=== PATIENT | female | born 1950 | race Caucasian/White ===

== ENCOUNTER 2017-10-20 12:56 | Emergency (ER) | payer OTHER ==
[~2017-10-20] VITALS: Ht 160 cm; Wt 94.8 kg
--- NOTE | 2017-10-20 13:17 | NUR ---
PT IS IN ROOM #2A. DR KEENAN EVALUATED THE PT.
[2017-10-20] MEDS ORDERED: HYDROCODONE/APAP 10-325 MG TABLET PO ONE (15:30)
[2017-10-20] MEDS ORDERED: HYDROCODONE/APAP 10-325 MG TABLET ONE (15:31)
[2017-10-20 15:39] VITALS: BP 131/82
--- NOTE | 2017-10-20 15:39 | NUR ---
PT WAS D/C TO HOME. D/C INSTRUCTIONS GIVEN TO THE PT.
== END 2017-10-20 15:41 | disposition home or self-care (01) ==
LOC: ER 12:56
DX: S30.0XXA Contusion of lower back and pelvis, initial encounter (principal); S60.212A Contusion of left wrist, initial encounter; S90.02XA Contusion of left ankle, initial encounter; I10 Essential (primary) hypertension; W19.XXXA Unspecified fall, initial encounter; Y93.89 Activity, other specified; Y92.89 Other specified places as the place of occurrence of the external cause; Y99.8 Other external cause status
CPT/HCPCS: 72100; 73110; 73600; A4663